=== PATIENT | female | born 1955 | race American Indian/Alaskan Native ===

== ENCOUNTER 2017-06-06 14:22 | Inpatient (IN) | payer MEDICARE, OTHER ==
--- NOTE | 2017-06-06 14:41 | ED Physician Chart ---
ED Chief Complaint/HPI - Patient Information Date Seen:: 06/06/17 Time Seen:: 14:30 Chief Complaint:: Paranoia History of Present Illness:: onset x one day of paranoid thoughts; pt denies SIs, H/As, neck pain, C/P, SOB, Abd. Pain, A/N/V/D/c, fever, chills, or urinary s/s Allergies:: Allergies Allergy/AdvReac Type Severity Reaction Status Date / Time propoxyphene [From Darvon] Allergy Verified 06/06/17 14:35 Historian:: Patient, EMS Review:: Nurse's Note Reviewed, Old Chart Reviewed, EMS run form Reviewed ED Review of Systems - Review of Systems General/Constitutional: No fever, No chills, No weight loss, No weakness, No diaphoresis, No edema, No loss of appetite Skin: No skin lesions, No rash, No bruising Head: No headache, No light-headedness Eyes: No loss of vision, No pain, No diplopia ENT: No earache, No nasal drainage, No sore throat, No tinnitus Neck: No neck pain, No swelling, No thyromegaly, No stiffness, No mass noted Cardio Vascular: No chest pain, No palpitations, No PND, No orthopnea, No edema Pulmonary: No SOB, No cough, No sputum, No wheezing GI: No nausea, No vomiting, No diarrhea, No pain, No melena, No hematochezia, No constipation, No hematemesis G/U: No dysuria, No frequency, No hematuria Musculoskeletal: No bone or joint pain, No back pain, No muscle pain Endocrine: No polyuria, No polydipsia Psychiatric: Prior psych history, Depression, Anxiety, No suicidal ideation, No homicidal ideation, Auditory hallucination, No visual hallucination Hematopoietic: No bruising, No lymphadenopathy Allergic/Immuno: No urticaria, No angioedema Neurological: No syncope, Focal symptoms, Weakness, No paresthesia, No headache , No seizure, No dizziness, Confusion, No vertigo ED Past Medical History - Past Medical History Obtainable: Yes Past Medical History: HTN, CVA/TIA Family History: Diabetes Melitus, HTN Social History: Non Smoker, No Alcohol, No Drug Use, Single, Care Facility Surgical History: None Psychiatricy History: Depression, Schizophrenia Medication: Reviewed ED Physical Exam - Physical Examination General/Constitutional: Awake, Well-developed, well-nourished, Alert, No distress, GCS 15, Non-toxic appearing, Ambulatory Head: Atraumatic Eyes: Lids, conjuctiva normal, PERRL, EOMI Skin: Nl inspection, No rash, No skin lesions, No ecchymosis, Well hydrated, No lymphadenopathy ENMT: External ears, nose nl, Nasal exam nl, Lips, teeth, gums nl Neck: Nontender, Full ROM w/o pain, No JVD, No nuchal rigidity, No bruit, No mass, No stridor Respiratory: Nl effort/Exclusion, Clear to Auscultation, No Wheeze/Rhonchi/Rales Cardio Vascular: RRR, No murmur, gallop, rubs, NL S1 S2 GI: No tenderness/rebounding/guarding, No organomegaly, No hernia, Normal BS's, Nondistended, No mass/bruits, No McBurney tenderness : No CVA tenderness Extremities: No tenderness or effusion, Full ROM, normal strength in all extremities, No edema, Normal digits & nails Neuro/Psych: Alert/oriented, DTR's symmetric, Normal sensory exam, Normal motor strength, Judgement/insight normal, Mood normal, Normal gait, No focal deficits Other Neuro/Psych comments:: + Paranoid Thoghts; Mood/Affect: Labile; no SIs Misc: Normal back, No paraspinal tenderness ED Septic Shock - . Is Septic Shock (SBP<90, OR Lactate>4 mmol\L) present?: No ED Discharge Plan - Patient Disposition Instructions: Psychosis
[2017-06-06 15:04] LABS: % BASOPHILS 0.2 % (0.0-2.0); % EOSINOPHILS 2.3 % (0.0-5.0); % LYMPHOCYTES 16.7 % (20.0-50.0); % MONOCYTES 7.5 % (2.0-10.0); % NEUTROPHILS 73.3 % (40.0-80.0); HEMATOCRIT 41.3 % (41.0-60); HEMOGLOBIN 13.6 gm/dL (12-16); MEAN CELL VOLUME 89.1 fl (81-100); MEAN CORPUSCULAR HEMOGLOBIN 29.3 pg (27.0-31.0); MEAN CORPUSCULAR HGB CONC 32.8 pg (28.0-36.0); MEAN PLATELET VOLUME 9.7 fl; NEUTROPHILE ABSOLUTE 7.3 Th/cmm (1.8-8.0); PLATELET COUNT 270 Th/cmm (150-400); RED BLOOD COUNT 4.64 Mil/cmm (3.80-5.10); RED CELL DISTRIBUTION WIDTH 12.6 % (11.5-20.0); WHITE BLOOD COUNT 9.9 Th/cmm (4.8-10.8)
[2017-06-06 15:28] LABS: ACETAMINOPHEN < 10.0 ug/mL (10.0-30.0); ALB/GLOB RATIO 1.2 (1.0-1.8); ALKALINE PHOSPHATASE 99 U/L (34-104); ANION GAP 7.5 (7.0-16.0); BILIRUBIN,TOTAL 0.2 mg/dL (0.3-1.0); BUN - UREA NITROGEN 13 mg/dL (7-25); BUN/CREATININE RATIO 16.3; CALCIUM SERUM 8.8 mg/dL (8.6-10.3); CARBON DIOXIDE 29.3 mEq/L (21.0-31.0); CHLORIDE 103 mEq/L (98-107); CHOLESTEROL 167 mg/dL (<200); CREATININE - SERUM 0.8 mg/dL (0.6-1.2); GLUCOSE 114 mg/dL (70-105); POTASSIUM SERUM 3.8 mEq/L (3.5-5.1); SGOT 15 U/L (13-39); SGPT/ALT 11 U/L (7-52); SODIUM SERUM 136 mEq/L (136-145); TRIGLYCERIDES 140 mg/dL (<150)
[2017-06-06 17:34] VITALS: BP 108/68
[2017-06-06] MEDS: oxyCODONE 5 mg IR Tab PO SCH (21:47)
[2017-06-07 05:42] LABS: URINE BILIRUBIN NEGATIVE (NEGATIVE); URINE BLOOD SMALL (NEGATIVE); URINE GLUCOSE (UA) NEGATIVE (NEGATIVE); URINE KETONE TRACE mg/dL (NEGATIVE); URINE PROTEIN TRACE mg/dL (NEGATIVE); URINE UROBILINOGEN 0.2 E.U./dL (0.2 - 1.0)
[2017-06-07 05:48] LABS: URINE COLOR YELLOW
[2017-06-07 05:54] LABS: URINE BACTERIA FEW /hpf (NONE SEEN); URINE EPITHELIAL CELLS MODERATE /lpf (FEW); URINE WBC 0-2 /hpf (0-5)
[2017-06-07 06:04] LABS: AMPHETAMINE URINE NEGATIVE (NEGATIVE); BARBITURATES URINE POSITIVE (NEGATIVE); METHADONE URINE NEGATIVE (NEGATIVE)
[2017-06-07] MEDS: oxyCODONE 5 mg IR Tab PO SCH ×4 (08:35→20:53)
--- NOTE | 2017-06-07 14:50 | History & Physical ---
ADMIT DATE: 06/06/2017 ADMITTING PHYSICIAN: Dr. Lemons for psychiatric disorder. REASON FOR ADMISSION: Psychiatric disorder. HISTORY OF PRESENT ILLNESS: This is a 61-year-old female with underlying history of chronic pain syndrome, hypertension, on multiple pain medications and muscle relaxants, admitted to [facility] for underlying psychiatric illness by Dr. Lucas Lemons. The patient complained of generalized body pain and muscle pain. The patient is using wheelchair primarily, the patient states because of the pain, she is difficult to walk. PAST MEDICAL HISTORY: Hypertension, chronic pain syndrome, mental disorders. PAST SURGICAL HISTORY: No significant past surgical history reported. SOCIAL HISTORY: The patient lives at assisted facility prior to this admission. No reported alcohol, tobacco or street drug use. CURRENT MEDICATIONS: As per medication reconciliation. ALLERGIES: Allergic to propoxyphene. REVIEW OF SYSTEMS: Denies any fever, no chills, no nausea, no vomiting, no abdominal pain, no headache, no chest pain, no shortness of breath, no dizziness, no palpitations, no fever, no chills. No complaints. PHYSICAL EXAMINATION: VITAL SIGNS: Temperature is 98.1, pulse 61, respirations 16, blood pressure 153/103. GENERAL APPEARANCE: The patient does not seem in acute distress. HEART: S1, S2 normal. LUNGS: Clear. ABDOMEN: Soft, nontender. EXTREMITIES: No edema. NEUROLOGIC: Grossly nonfocal. AVAILABLE LABORATORY DATA: Has been reviewed. ASSESSMENT: 1. Chronic pain syndrome. 2. Hypertension. 3. Psychiatric disorder, ____ psychiatrist. PLAN: The patient to continue current pain medication, muscle relaxant. We will add lisinopril for her blood pressure. Psych management per psychiatrist. The patient appeared medically stable to participate in [facility]. Thank you Dr. Lemons for allowing to see this patient. JOB# [id number]
--- NOTE | 2017-06-07 16:13 | Psychosocial Evaluation ---
DATE OF SERVICE: JUSTIFICATION FOR HOSPITALIZATION: On 5149. The patient noted to be paranoid, psychotic, and refusing treatment. CHIEF COMPLAINT: Psychotic decompensation. HISTORY OF PRESENT ILLNESS: A 61-year-old female noted history of schizophrenia, not taking her medications, decompensating at the retirement, paranoid, believing that staff is trying to harm her, feeling that the staff were conducting some electrical test and that she is being placed under an electrical grid. The patient noted to be very upset, angry, and irritable. PAST PSYCHIATRIC HISTORY: Admission in [place]. She denies a diagnosis of schizophrenia. FAMILY HISTORY: Noncontributory. SOCIAL HISTORY: Born in [place], not , no kids, no drugs, no alcohol, no tobacco. MEDICAL HISTORY: Please see full H and P. MEDICATIONS: Noted. MENTAL STATUS EXAMINATION: Stated age. Fair eye contact. Speech within normal limits. Mood "not good." Affect angry. Thought processes were fragmented. Thought content, no overt SI or HI, but she is quite paranoid. Insight and judgment diminished. PROVISIONAL DIAGNOSIS: Schizophrenia. Medical; please see full H and P. ESTIMATED LENGTH OF STAY: 5-7 days. ASSESSMENT: The patient requiring inpatient hospitalization, psychotic, paranoid, feeling that staffs at the retirement were trying to harm her, out of control behaviors. PLAN: We will continue to monitor. We will initiate an antipsychotic. TREATMENT PLAN: Includes group as well as milieu therapy. CONDITIONS FOR DISCHARGE: Improved mood, improved affect, and better control of her psychotic symptoms. [facility]# [id number]
[2017-06-08] MEDS ORDERED: APAP 325mg/Butalbital 50mg/Caff 40mg Tab PO PRN (07:46)
[2017-06-08] MEDS: oxyCODONE 5 mg IR Tab PO SCH ×4 (08:48→21:26)
--- NOTE | 2017-06-09 00:21 | Progress Notes ---
DATE: SUBJECTIVE: Chart reviewed and the patient interviewed. Also discussed the patient's condition with the staff and reviewed records and labs. The patient is still anxious and is still in a depressed mood. The patient also is still disheveled and isolative and withdrawn. The patient also still seems to be responding to stimuli. She also is still unable to provide any safe plan for self-care. She still is having difficulty verbalizing her needs. Otherwise, the patient is compliant with taking her medications with no side effects of medications. ASSESSMENT: The patient is still psychotic and still can be considered to be gravely disabled and dangerous to herself. TREATMENT PLAN: We will continue to monitor the patient's condition and behavior closely. Also, the patient had some concern about her car and we asked social and political studies professor to help her in regard to try to get her car. At the same time, we will place the patient on a 5250 hold for grave disability. Also the patient will continue to take gabapentin but in a dose of 900 mg 3 times a day. The patient said that she was taking 600 mg twice a day and the 900 mg at bedtime and will change to that. Also because the patient has been living in her car and with her age and medical condition, we will try to work with case resolution specialist in regard to help with placement. JOB# [id number]
[2017-06-09] MEDS: oxyCODONE 5 mg IR Tab PO SCH ×4 (09:10→20:40)
[2017-06-10] MEDS: oxyCODONE 5 mg IR Tab PO SCH ×4 (08:35→20:48)
[2017-06-11] MEDS: oxyCODONE 5 mg IR Tab PO SCH ×4 (09:09→21:44)
--- NOTE | 2017-06-11 19:54 | Progress Notes ---
DATE: 06/09/2017 SUBJECTIVE: The patient seen, chart reviewed, discussed with staff. The patient upset, feels that the staff are not treating her nicely. She is noting that she did not like the court hearing, feels that people are demeaning her. The patient is pretty linear and engaged at this time. She is more clear as to some of the issue she had at the nursing facility, and now denying that she felt that she was under some sort of an electrical grid, now alluding to not being on the correct medications. She states that she does have a mental illness, but only states that she is anxious. The staff is noting that she has been calm and cooperative. No evidence of any paranoia or psychotic symptoms, although there may be some borderline qualities of splitting. She is somewhat playing the role of the victim, though staff noting she is quite demanding and intrusive at times. No dangerousness noted. No agitation, no aggressive behaviors. ASSESSMENT: The patient irritable, intrusive, demanding, but no dangerousness noted. No overt psychotic symptoms noted at this time. PLAN: We will continue to monitor. Medications were reviewed. The patient does not want to take any antipsychotics, alluding to negative side effects and she does not want to subject herself to those side effects. She appears to have the capacity to make this type of a decision. JOB# [id number]
[2017-06-12] MEDS: oxyCODONE 5 mg IR Tab PO SCH ×2 (08:21→12:46)
--- NOTE | 2017-06-12 12:06 | Progress Notes ---
DATE: 06/11/2017 SUBJECTIVE: The patient was seen, chart reviewed, discussed with staff, 61-year-old female. It was noted by nursing staff that she had a diagnosis of schizophrenia, but the patient has not really been symptomatic. She has been more irritable, demanding, and focused on her opiates and pain medications. She does attest to anxiety. She denies any voices. She clarifies what she meant by the comments about the electrical grid. The patient has been bathrooming on her own. She has been eating on her own. No prompting needed to eat. We have confirmed placement for the patient and these resources are being offered. There are actually multiple options, which I have outlined to the patient. She is well oriented. No SI, no HI. ASSESSMENT: The patient does not appear to have any psychotic symptoms. She has been focused on her pain medications, irritable, demanding, but staff is noting that she is not showing any dangerousness. She has been calm and fairly cooperative, following unit rules and directions. PLAN: We will prepare for disposition in the next 24-48 hours. The patient is not showing any signs and symptoms of schizophrenia at this time. We will discharge with Risperdal. The patient has made it clear that she was never diagnosed with schizophrenia and has never had any voices and does not want to take the medications for this reason and she has the capacity to consent. She does have the insight to tell me that she does suffer from anxiety. JOB# [id number]
--- NOTE | 2017-06-12 12:08 | Progress Notes ---
DATE: 06/10/2017 SUBJECTIVE: The patient was seen, chart reviewed, discussed with staff. The patient remains pretty linear on exam, friendly, slept fairly well last night about 6 hours. Staff noting she remains argumentative and demanding, but no gross psychotic symptoms noted. She is denying any overt paranoia or hallucinations at this time. It is unclear what her psychiatric diagnosis is. It seems when she presented, she was quite paranoid, but she is clearing up. She is a lot more linear and engaged. She does not want to take antipsychotic medications and is selective with her medications as she believes that she does have anxiety and generalized anxiety disorder. ASSESSMENT: The patient remains anxious, demanding, intrusive, restless, but no gross psychotic symptoms. PLAN: We will continue to monitor. We will continue to work on placement. MEDICATIONS: Reviewed. JOB# [id number]
--- NOTE | 2017-06-13 | Discharge Summary ---
DATE OF DISCHARGE: 06/12/2017 JUSTIFICATION FOR HOSPITALIZATION: The patient was sent over from nursing facility, refusing treatment, verbally aggressive towards staff, demanding. CHIEF COMPLAINT: "I don't want to be here." HISTORY OF PRESENT ILLNESS: A 61-year-old female noted history of schizophrenia, not taking medications, decompensating at the [facility], talking about the electrical grid. The patient noted to be upset, angry, and irritable. However, when she was admitted to the hospital, she was noted to be pretty calm, demanding, and intrusive at times, but linear and engaged and well oriented. PAST PSYCHIATRIC HISTORY: Admission in [place]. SOCIAL HISTORY: Born in [place], not , no kids, no drugs, no alcohol, no tobacco. MENTAL STATUS EXAMINATION: Please see full psych eval for details. PROVISIONAL DIAGNOSIS: Schizophrenia, poor medication and treatment compliance. MEDICAL HISTORY: Please see full H and P. HOSPITAL COURSE: After initial assessment, the patient was noted to be med seeking for opiates, complaining of pain, only admitting to anxiety. Denying any psychotic symptoms. The story that she told about the grids was later denied, stating that she just wanted to move rooms, unhappy with the care she was getting at the facility. Staff noting no psychotic symptoms, no paranoia. She remains somewhat isolative, but no agitation, no escalation of her symptoms. She filed a writ of habeas corpus telling the feller operator that she wanted to go to a halfway and was feeling uncomfortable in the hospital. She was noted to be able to walk, bathrooming on her own, eating without any prompting, appropriately groomed and dressed. CONDITION UPON DISCHARGE: Improved. Fair attention, ADLs, good eye contact. Speech was within normal limits. Mood "fine." Affect constricted. Thought processes were linear and engaged. No SI, no intent, no plan. No HI, no intent, no plan. No evidence of any psychotic symptoms. Insight and judgment fair. Impulse control reasonable. PROVISIONAL DIAGNOSES: Mood, unspecified. Also, generalized anxiety disorder. MEDICAL: Please see full H and P. PROGNOSIS: The patient follows up with outpatient mental illness services and follows her treatment plan. Prognosis will improve, otherwise guarded. JOB# [id number]
== END 2017-06-12 17:00 | DRG 885 ==
LOC: ER 14:22 → GERO 17:00
PROVIDERS: ADMIT Psychiatry & Neurology Psychiatry; ATTEND Psychiatry & Neurology Psychiatry
DX: F20.0 Paranoid schizophrenia (principal); F29 Unspecified psychosis not due to a substance or known physiological condition; I10 Essential (primary) hypertension; G89.4 Chronic pain syndrome; F32.9 Major depressive disorder, single episode, unspecified; F41.9 Anxiety disorder, unspecified; Z86.73 Personal history of transient ischemic attack (TIA), and cerebral infarction without residual deficits; Z83.3 Family history of diabetes mellitus; Z82.49 Family history of ischemic heart disease and other diseases of the circulatory system; Z88.8 Allergy status to other drugs, medicaments and biological substances
CPT/HCPCS: 36415-UA; 80053-TC; 80061-TC; 80307; 80320-TC; 80329-TC; 81001-TC; 82948-90; 83036-90; 84443-TC; 85025-TC; 86592-TC; 90899; G0410; Z7610